=== PATIENT | male | born 1995 | race Two or more races ===

== ENCOUNTER 2021-01-10 12:02 | Outpatient (CLI) | payer OTHER | END 2021-01-10 12:10 | disposition home or self-care (01) | LOC: TOM 12:02 | PROVIDERS: ATTEND Internal Medicine Cardiovascular Disease | DX: R10.9 Unspecified abdominal pain (principal) ==

== ENCOUNTER 2021-02-16 11:10 | Inpatient (IN) | payer OTHER | END 2021-02-23 18:22 | disposition home or self-care (01) | DRG 386 | LOC: SEC-K 11:10 → SURH 11:10 | PROVIDERS: ADMIT Internal Medicine Cardiovascular Disease; ATTEND Internal Medicine Cardiovascular Disease | PROC: BW30YZZ Magnetic Resonance Imaging (MRI) of Abdomen using Other Contrast (ICD-10-PCS; principal; 2021-02-16) | DX: K51.811 Other ulcerative colitis with rectal bleeding (principal); E87.1 Hypo-osmolality and hyponatremia; K52.89 Other specified noninfective gastroenteritis and colitis; R10.9 Unspecified abdominal pain; Z20.822 Contact with and (suspected) exposure to COVID-19 | CPT/HCPCS: 240; 74182 ==